=== PATIENT | female | born 1975 | race American Indian/Alaskan Native ===

== ENCOUNTER 2019-05-15 14:01 | Emergency (ER) | payer BC ==
[2019-05-15] MEDS ORDERED: IBUPROFEN PO ONE (14:11)
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
[2019-05-15] MEDS ORDERED: NORCO 5/325 PO ONE (14:15)
--- NOTE | 2019-05-15 15:15 | XRay Report ---
RIGHT ANKLE, 3 views: History: right ankle pain. Bone mineralization is normal. A spiral fracture of the distal tibial shaft is identified which extends to the tibiotalar joint medially and posteriorly. There is an oblique fracture of the distal fibular shaft with 4 mm displacement. The ankle mortise is unremarkable. The talar dome is intact. A moderate plantar spur. There is severe diffuse soft tissue swelling. IMPRESSION: Acute fractures of the distal tibia and fibula as described above.
[2019-05-15] MEDS ORDERED: MORPHINE IM ONE (16:36)
[2019-05-15] MEDS ORDERED: IBUPROFEN ONE (16:40)
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
--- NOTE | 2019-05-15 18:29 | XRay Report ---
PROCEDURE: Right knee. TECHNIQUE: 3 views. HISTORY: Knee pain. COMPARISONS: None. FINDINGS: The bones appear intact without fracture or dislocation. The joint spaces appear normal. The soft tis sues are unremarkable. IMPRESSION: Normal study. This document is electronically signed by Ramsey Estevez MD., May 15 2019 06:27:08 PM ET
[2019-05-15 19:12] VITALS: BP 113/61
== END 2019-05-15 18:24 | disposition home or self-care (01) ==
LOC: ED 14:01
DX: S82.831A Other fracture of upper and lower end of right fibula, initial encounter for closed fracture (principal); S82.391A Other fracture of lower end of right tibia, initial encounter for closed fracture; Z79.1 Long term (current) use of non-steroidal anti-inflammatories (NSAID); Z79.899 Other long term (current) drug therapy; Y29.XXXA Contact with blunt object, undetermined intent, initial encounter; Y93.89 Activity, other specified; Y92.39 Other specified sports and athletic area as the place of occurrence of the external cause; Y99.8 Other external cause status
CPT/HCPCS: 29515; 73562; 73600; 82962; 96372; 99284; J2270

== ENCOUNTER 2019-05-21 09:33 | Day surgery (SDC) | payer BC, OTHER ==
[~2019-05-21 09:33] MED LIST: ANCEF/STERILE WATER 2 GM/20 ML IV NR; LACTATED RINGERS 1,000 ML IV SCH; NEURONTIN PO NR; VERSED IV NR
--- NOTE | 2019-05-21 10:07 | Anesthesia Consultation ---
Anesthesia Consult and Med Hx Date of service: 05/21/19 - Airway Anesthetic Teeth Evaluation: Good ROM Head & Neck: Adequate Mental/Hyoid Distance: Adequate Mallampati Class: Class III Intubation Access Assessment: Possibly Difficult - Pulmonary Exam CTA: Yes - Cardiac Exam Cardiac Exam: RRR - Pre-Operative Health Status ASA Pre-Surgery Classification: ASA1 Proposed Anesthetic Plan: General Nerve Block: Adductor canal + popliteal - Pulmonary Hx Smoking: No Hx Respiratory Symptoms: No Hx Sleep Apnea: No (RAMESH PRE SCREEN LOW RISK) - Cardiovascular System Hx Hypertension: No Hx Heart Attack/AMI: No - Central Nervous System CVA: No - Gastrointestinal Hx Gastroesophageal Reflux Disease: No - Endocrine Hx Renal Disease: No Hx Liver Disease: No Hx Insulin Dependent Diabetes: No Hx Non-Insulin Dependent Diabetes: No Hx Thyroid Disease: No - Other Systems Hx Obesity: Yes - Additional Comments Anesthesia Medical History Comments: No hx anesthetic complications. Consented for preop nerve blocks for postop analgesia.
[2019-05-21] MEDS ORDERED: PERCOCET 5/325 PO PRN (10:08)
--- NOTE | 2019-05-21 10:08 | Anesthesia Day of Surgery ---
Anesthesia Day of Surgery - Day of Surgery Patient Examined: Yes Patient H&P Reviewed: Yes Patient is NPO: Yes
[2019-05-21] MEDS ORDERED: MARCAINE 0.25% INFILTRATI ONE (10:13)
[2019-05-21] MEDS ORDERED: DECADRON ONE (10:13)
[2019-05-21] MEDS ORDERED: XYLOCAINE 1% 20 mL ONE (10:17)
[2019-05-21] MEDS ORDERED: NEOSPORIN GU IR ONE (10:24)
[2019-05-21] MEDS: SUBLIMAZE IV PRN ×4 (10:55→16:45)
[2019-05-21] MEDS ORDERED: XYLOCAINE MPF 2% ONE (11:09)
[2019-05-21] MEDS ORDERED: SUBLIMAZE ONE ×2 (11:09→13:35)
[2019-05-21] MEDS ORDERED: DIPRIVAN 10 MG/ML IV ONE (11:09)
[2019-05-21] MEDS ORDERED: NACL 0.9% IR ONE (12:12)
--- NOTE | 2019-05-21 15:03 | Procedure Note ---
Date of procedure: 05/21/19 Pre-op diagnosis: Displaced right tibia-fibular fracture Post-op diagnosis: same Procedure: Open reduction and internal fixation right distal tibia and fibula Procedure The patient was brought to the OR and placed in the or table in supine position following induction and intubation by anesthesia the patient's right lower extremity was prepped and draped in the usual sterile manner. Previous timeout procedure was done to identify the patient and the correct operative site. The leg was exsanguinated followed by inflation of the pneumatic tourniquet to 300 mmHg. Beginning on the lateral border of the distal leg at the incision was made over the distal fibula this was taken down sharply through skin subcutaneous down to the fracture site using a 15 blade the periosteal was gently stripped from around the fracture ends to more R visualize the fracture fragment and reduced reduced the fragment was anatomically after multiple attempts at reduction of the distal fibula it was decided to proceed medially using a medial incision over the distal tibia this was then taken down sharply through skin and subcutaneous the saphenous vein was identified and was protected this brought us down on to the fracture patient was noted to have a comminuted fracture involving the distal third portion of the tibia which extended upwards all for approximately 9-10 cm there is also a fairly large posterior fragment that was reduced and stabilized by way over a K wire for temporary fixation. then subsequently reinforced with a 12 hole medial tibial lock plate again using C-arm visualization multiple locking and nonlocking screws were used to obtain a stable reduction following this the lateral incision was explored the fracture now was in a more reduced position this lateral malleolus fragment was stabilized with a 8-hole one third semitubular plate screws were placed to secure the plate along the lateral border again AP and lateral views were obtained showing good reduction of both the distal tibial fragments as well as the lateral distal fibula the wound was then copiously irrigated and was closed in a standard routine fashion postoperative pain cocktail was injected in the surrounding soft tissues for postoperative pain management a short leg fiberglass splint was applied the patient tolerated the procedure there were no complications he was sent to postanesthesia recovery in stable condition Anesthesia: MAC, regional Surgeon: MARKUS EARL Sas Programmer Analyst: YAHAIRA GALVIN Estimated blood loss: minimal Pathology: none Condition: stable Disposition: PACU
--- NOTE | 2019-05-21 15:26 | XRay Report ---
XR ankle 2V RT INDICATION / CLINICAL INFORMATION: RT ANKLE ORIF// FRACTURE. COMPARISON: Right ankle radiographs on 05/15/2019. FINDINGS: 2 fluoroscopic images were obtained during open reduction internal fixation of the distal tibial and fibular fractures in the right ankle with satisfactory postoperative radiographic appearance. Total f luoroscopic time was 20 seconds. Signer Name: Artie Morfin MD Signed: 05/21/2019 3:22 PM Workstation Name: [id number]
[2019-05-21 16:22] VITALS: BP 136/64
--- NOTE | 2019-05-21 16:41 | Post Anesthesia Evaluation ---
- Post Anesthesia Evaluation Patient Participated: Yes Airway Patent: Yes Stable Respiratory Function: Yes Nausea/Vomiting: No Temp > 96.8F: Yes Pain Manageable: Yes Adequeate Hydration: Yes Anesthesia Complications: No Block Receding Appropriately: Yes (block for post op analgesia; sensation returning, motor block persists)
== END 2019-05-21 17:00 | disposition home or self-care (01) ==
LOC: OR 09:33
PROVIDERS: ATTEND Orthopaedic Surgery
DX: S82.251A Displaced comminuted fracture of shaft of right tibia, initial encounter for closed fracture (principal); S82.831A Other fracture of upper and lower end of right fibula, initial encounter for closed fracture; E66.9 Obesity, unspecified; Z68.31 Body mass index [BMI] 31.0-31.9, adult; Z98.890 Other specified postprocedural states; Z79.899 Other long term (current) drug therapy; X58.XXXA Exposure to other specified factors, initial encounter; Y93.89 Activity, other specified; Y92.89 Other specified places as the place of occurrence of the external cause; Y99.8 Other external cause status
CPT/HCPCS: 27828; 64450; 73600; 81025; C1713; J0690; J1100; J2250; J2704; J3010; J7120